=== PATIENT | female | born 1970 | race Caucasian/White ===

== ENCOUNTER 2022-09-22 22:52 | Inpatient (IN) ==
[2022-09-22] MEDS ORDERED: SODIUM CHLORIDE 0.9% 500 ML IV STA (23:11)
[2022-09-22] MEDS ORDERED: ALBUTEROL/IPRATROPIUM 3 ML NEB RESP TX STA (23:11)
[2022-09-22 23:30] LABS: Arterial Base Excess iSTAT -4 MMOL/L (-2.5-2.5); Arterial Bicarbonate iSTAT 20.4 MMOL/L (20-26); Arterial O2 Saturation iSTAT 100 % (95-100); Arterial PCO2 iSTAT 29 MM HG (35-48); Arterial PO2 iSTAT 195 MM HG (80-95); Arterial Total CO2 iSTAT 21 MMO/L (23-27); Arterial pH iSTAT 7.454 (7.35-7.45)
[2022-09-23 00:16] LABS: Alanine Aminotransferase 68 U/L (13-56); Albumin 2.8 G/DL (3.4-5.0); Alkaline Phosphatase 103 U/L (45-117); Aspartate Amino Transferase 111 U/L (0-37); Blood Urea Nitrogen 18 MG/DL (7-18); Calcium 8.5 MG/DL (8.5-10.1); Carbon Dioxide 22 MMOL/L (21-32); Chloride 107 MMOL/L (98-107); Glucose 125 MG/DL (74-106); Potassium 4.3 MMOL/L (3.5-5.1); Sodium 136 MMOL/L (136-145); Total Protein 6.3 G/DL (6.4-8.2)
[2022-09-23] MEDS ORDERED: SODIUM CHLORIDE 0.9% 1,000 ML IV STA (00:26)
[2022-09-23 00:35] LABS: INR 1.2; PT Patient Result 13.1 SECS (10.1-12.1)
[2022-09-23] MEDS ORDERED: VANCOMYCIN INJ 1,000 MG in SODIUM CHLORIDE 0.9% 250 ML IV STA (01:08)
[2022-09-23] MEDS ORDERED: methylPREDNISolone SOD SUC 125 MG/2 ML VIAL IV STA (01:08)
[2022-09-23] MEDS ORDERED: PIPERACILLIN/TAZOBACTAM 3,375 MG in SODIUM CHLORIDE 0.9% 100 ML IV STA (01:08)
[2022-09-23] MEDS ORDERED: ALBUTEROL 2.5 MG/3 ML NEB RESP TX STA (01:09)
[2022-09-23] MEDS ORDERED: hydrALAZINE 20 MG/1 ML VIAL IV PRN (01:36)
[2022-09-23] MEDS ORDERED: ACETAMINOPHEN 325 MG TABLET PO PRN (01:36)
[2022-09-23] MEDS ORDERED: NICOTINE 21 MG/24 HR PATCH TRANSDERM PRN (01:36)
[2022-09-23] MEDS ORDERED: ONDANSETRON 4 MG/2 ML VIAL IV PRN (01:36)
[2022-09-23] MEDS ORDERED: ALUMINUM/MAGNES/SIMETH MAX STR 30 ML UDCUP PO PRN (01:36)
[2022-09-23] MEDS ORDERED: PANTOPRAZOLE INJ 80 MG in SODIUM CHLORIDE 0.9% 100 ML IV ONE (01:46)
[2022-09-23 02:21] LABS: Basophils % 0.1 % (0.0-0.8); Eosinophils # 0.1 10*3/uL (0.0-0.87); Eosinophils % 0.7 % (0.00-10.9); Immature Granulocytes % 0.5 %; Immature Granulocytes Absolute 0.04 #; Lymphocytes % 13.3 % (21.3-54.2); Mean Corpuscular HGB Conc 24.8 GM/DL (32-36); Mean Corpuscular Volume 60.1 FL (87-102); Monocytes # 0.6 10*3/uL (0.11-0.8); Monocytes % 8.1 % (1.7-12.7); NRBC # 0.04 10*3/uL; Neutrophils % 77.3 % (38.7-73.9); Platelet Count 149 T/CUMM (130-400); Red Blood Count 1.68 MC/CUMM (3.8-5.5); Red Cell Distribution Width 21.5 % (9.3-17.3); White Blood Count 7.7 T/CUMM (4-12)
[2022-09-23] MEDS ORDERED: SODIUM CHLORIDE 0.9% 1,000 ML IV PRN ×2 (02:22→16:24)
[2022-09-23 02:24] LABS: Hematocrit 10.1 VOL% (35.7-47.0); Hemoglobin 2.5 GM/DL (12.0-16.0)
[2022-09-23] MEDS ORDERED: SODIUM CHLORIDE 0.9% 3,000 ML IV ONE (02:25)
[2022-09-23] MEDS ORDERED: ALBUTEROL 2.5 MG/3 ML NEB RESP TX PRN (03:46)
[2022-09-23 04:10] LABS: INR 1.2; PT Patient Result 13.4 SECS (10.1-12.1); Partial Thromboplastin Time 20.1 SECS (23.7-32.9)
[2022-09-23 04:32] LABS: Risk Ratio 2.14; Thyroid Stimulating Hormone 1.52 uIU/ml (0.358-3.74); VLDL Cholesterol 10.4 MG/DL
[2022-09-23 04:39] LABS: High Sensitive Troponin I* 116.8 ng/L (0-54)
[2022-09-23 04:40] LABS: Bacteria,Urine Occasional /HPF (Few); RBC,Urine 2 /HPF (0-4); Squamous Epithelial Cell,Urine Few /HPF (0-10)
[2022-09-23 04:44] LABS: Bilirubin,Urine Negative (Negative); Blood, Urine Moderate mg/dL (Negative); Glucose,Urine (UA) Negative (Negative); Ketones,Urine Negative (Negative); Nitrite,Urine Negative (Negative); Protein,Urine Negative (Negative); Urine Appearance Clear (Clear); Urine Color Yellow (Yellow); Urine Urobilinogen 0.2 eU/dL (<2.0)
[2022-09-23] MEDS ORDERED: GLUCAGON 1 MG VIAL IM PRN (05:12)
[2022-09-23] MEDS ORDERED: DEXTROSE 10% 250 ML BAG IV PRN (05:12)
[2022-09-23] MEDS: PANTOPRAZOLE INJ 200 MG in SODIUM CHLORIDE 0.9% 250 ML IV SCH (05:15)
[2022-09-23 05:19] LABS: Barbiturates Screen,Urine Negative (Negative); Benzodiazepines Screen,Urine Negative (Negative); Cannabinoid Screen,Urine Negative (Negative); Opiate Screen,Urine Negative (Negative); Phencyclidine Screen,Urine Negative (Negative)
[2022-09-23] MEDS ORDERED: INSULIN LISPRO 100 UNIT/ML SUBCUT SCH (06:00)
[2022-09-23] MEDS ORDERED: ALBUTEROL 2.5 MG/3 ML NEB RESP TX SCH (07:00)
[2022-09-23] MEDS ORDERED: methylPREDNISolone SOD SUC 40 MG/1 ML VIAL IV SCH (08:00)
[2022-09-23] MEDS: ALBUTEROL/IPRATROPIUM 3 ML NEB RESP TX SCH ×3 (08:02→18:45)
[2022-09-23] MEDS: methylPREDNISolone SOD SUC 40 MG/1 ML VIAL IV SCH ×2 (08:43→17:37)
[2022-09-23] MEDS ORDERED: PANTOPRAZOLE 40 MG TABLET PO SCH (09:00)
[2022-09-23] MEDS ORDERED: LACTATED RINGERS 1,000 ML IV SCH (10:30)
[2022-09-23] MEDS: DOCUSATE SODIUM 100 MG CAPSULE PO SCH ×2 (11:05→20:14)
[2022-09-23 11:58] LABS: Hematocrit 19.6 VOL% (35.7-47.0)
[2022-09-23 12:21] LABS: Hepatitis B Core IgM Quant 0.07 Index; Hepatitis B Surface Ag Quant < 0.10 Index; Hepatitis B Surface Ag Result Non-Reactive (NonReactive); Hepatitis C Virus Ab Quant > 11.00 Index; Hepatitis C Virus Ab Result Reactive (NonReactive)
[2022-09-23 15:39] LABS: Hematocrit 21.8 VOL% (35.7-47.0); Hemoglobin 6.5 GM/DL (12.0-16.0)
[2022-09-23] MEDS ORDERED: POLYETHYLENE GLYCOL POWDER 255 GM BOTTLE PO ONE (18:00)
[2022-09-23] MEDS: FUROSEMIDE 40 MG/4 ML VIAL IV PRN (18:40)
[2022-09-24] MEDS: ALBUTEROL/IPRATROPIUM 3 ML NEB RESP TX SCH ×4 (00:15→19:00)
[2022-09-24] MEDS: methylPREDNISolone SOD SUC 40 MG/1 ML VIAL IV SCH ×3 (00:18→17:06)
[2022-09-24] MEDS: FUROSEMIDE 40 MG/4 ML VIAL IV PRN (00:19)
[2022-09-24 04:44] LABS: Basophils % 0.1 % (0.0-0.8); Hematocrit 28.3 VOL% (35.7-47.0); Hemoglobin 9.1 GM/DL (12.0-16.0); Immature Granulocytes % 5.2 %; Immature Granulocytes Absolute 0.41 #; Lymphocytes # 0.5 10*3/uL (1.4-4.0); Mean Corpuscular HGB Conc 32.2 GM/DL (32-36); Mean Corpuscular Volume 73.9 FL (87-102); Monocytes # 0.3 10*3/uL (0.11-0.8); Monocytes % 3.2 % (1.7-12.7); NRBC # 0.12 10*3/uL; Neutrophils % 85.5 % (38.7-73.9); Platelet Count 108 T/CUMM (130-400); Red Blood Count 3.83 MC/CUMM (3.8-5.5); White Blood Count 7.9 T/CUMM (4-12)
[2022-09-24] MEDS ORDERED: POLYETHYLENE GLYCOL POWDER 255 GM BOTTLE PO ONE ×3 (05:00→09:00)
[2022-09-24 05:06] LABS: Lymphocytes 2 % (20-55); Nucleated Red Blood Cells 4 /100 WBC (0-5); Total Cells Counted 100
[2022-09-24 05:07] LABS: Bilirubin,Total 2.2 MG/DL (0.20-1.00); Calcium 8.3 MG/DL (8.5-10.1); Hypochromia 1+; Microcytosis 1+; Osmolality,Calculated 278.8 MOS/KG (273-304); Potassium 3.7 MMOL/L (3.5-5.1); Total Protein 6.7 G/DL (6.4-8.2)
[2022-09-24] MEDS: PANTOPRAZOLE INJ 200 MG in SODIUM CHLORIDE 0.9% 250 ML IV SCH (06:41)
[2022-09-24] MEDS: LACTATED RINGERS 1,000 ML IV SCH (09:10)
[2022-09-24] MEDS: DOCUSATE SODIUM 100 MG CAPSULE PO SCH ×2 (10:04→20:40)
[2022-09-24] MEDS: PANTOPRAZOLE 40 MG TABLET PO SCH (10:06)
[2022-09-24] MEDS: IRON (CARBONYL)/VIT C/B12/FA TABLET PO SCH (10:06)
[2022-09-24] MEDS: METOPROLOL TARTRATE 25 MG TABLET PO SCH ×2 (17:07→20:40)
[2022-09-25] MEDS: ALBUTEROL/IPRATROPIUM 3 ML NEB RESP TX SCH ×4 (00:45→21:57)
[2022-09-25] MEDS: methylPREDNISolone SOD SUC 40 MG/1 ML VIAL IV SCH ×4 (03:59→23:15)
[2022-09-25 05:38] LABS: Basophils % 0.2 % (0.0-0.8); Hematocrit 30.1 VOL% (35.7-47.0); Hemoglobin 9.6 GM/DL (12.0-16.0); Immature Granulocytes % 2.3 %; Immature Granulocytes Absolute 0.29 #; Lymphocytes # 0.9 10*3/uL (1.4-4.0); Lymphocytes % 7.2 % (21.3-54.2); Mean Corpuscular HGB Conc 31.9 GM/DL (32-36); Mean Corpuscular Volume 75.1 FL (87-102); Monocytes # 0.7 10*3/uL (0.11-0.8); Monocytes % 5.3 % (1.7-12.7); NRBC # 0.08 10*3/uL; Platelet Count 124 T/CUMM (130-400); Red Blood Count 4.01 MC/CUMM (3.8-5.5); White Blood Count 12.8 T/CUMM (4-12)
[2022-09-25 06:01] LABS: Albumin 3.1 G/DL (3.4-5.0); Bilirubin,Total 1.1 MG/DL (0.20-1.00); Calcium 8.8 MG/DL (8.5-10.1); Potassium 3.9 MMOL/L (3.5-5.1); Total Protein 6.6 G/DL (6.4-8.2)
[2022-09-25 06:09] LABS: Anisocytosis 1+; Hypochromia 1+; Microcytosis 1+; Polychromasia Slight
[2022-09-25 06:10] LABS: Ovalocytes Slight; Platelet Estimate Adequate; Target Cells Slight
[2022-09-25] MEDS: LACTATED RINGERS 1,000 ML IV SCH (08:00)
[2022-09-25] MEDS: DOCUSATE SODIUM 100 MG CAPSULE PO SCH ×2 (09:54→20:28)
[2022-09-25] MEDS: IRON (CARBONYL)/VIT C/B12/FA TABLET PO SCH (09:55)
[2022-09-25] MEDS: METOPROLOL TARTRATE 25 MG TABLET PO SCH ×2 (09:55→20:26)
[2022-09-25] MEDS: PANTOPRAZOLE 40 MG TABLET PO SCH (09:55)
[2022-09-25] MEDS ORDERED: LIDOCAINE 2% 5 ML VIAL ONE ×2 (12:16→12:21)
[2022-09-25] MEDS ORDERED: propofoL 200 MG/20 ML VIAL IV ONE (12:16)
[2022-09-25 20:30] LABS: HSV 2, PCR Negative (Negative)
[2022-09-26] MEDS: ALBUTEROL/IPRATROPIUM 3 ML NEB RESP TX SCH ×4 (01:27→13:56)
[2022-09-26 05:46] LABS: Basophils % 0.1 % (0.0-0.8); Hematocrit 29.6 VOL% (35.7-47.0); Hemoglobin 9.2 GM/DL (12.0-16.0); Immature Granulocytes % 1.6 %; Immature Granulocytes Absolute 0.15 #; Lymphocytes # 0.4 10*3/uL (1.4-4.0); Lymphocytes % 4.7 % (21.3-54.2); Mean Corpuscular HGB Conc 31.1 GM/DL (32-36); Mean Corpuscular Volume 76.7 FL (87-102); Monocytes # 0.8 10*3/uL (0.11-0.8); NRBC # 0.06 10*3/uL; Neutrophils % 84.6 % (38.7-73.9); Platelet Count 107 T/CUMM (130-400); Red Blood Count 3.86 MC/CUMM (3.8-5.5); White Blood Count 9.2 T/CUMM (4-12)
[2022-09-26 06:01] LABS: Albumin 2.9 G/DL (3.4-5.0); Calcium 7.9 MG/DL (8.5-10.1); Osmolality,Calculated 279.7 MOS/KG (273-304); Potassium 3.6 MMOL/L (3.5-5.1); Total Protein 6.1 G/DL (6.4-8.2)
[2022-09-26 06:01] LABS: Folate 13.43 NG/ML (5.38-24.0)
[2022-09-26 06:17] LABS: % Iron Saturation 4.7 % (18-50)
[2022-09-26] MEDS: methylPREDNISolone SOD SUC 40 MG/1 ML VIAL IV SCH ×2 (08:19→16:09)
[2022-09-26 08:22] LABS: Anisocytosis 2+; Hypochromia Slight; Lymphocytes 5 % (20-55); Nucleated Red Blood Cells 1 /100 WBC (0-5); Ovalocytes Few; Platelet Estimate Adequate; Total Cells Counted 100
[2022-09-26 08:23] LABS: Polychromasia Slight
[2022-09-26] MEDS: IRON (CARBONYL)/VIT C/B12/FA TABLET PO SCH (09:18)
[2022-09-26] MEDS: DOCUSATE SODIUM 100 MG CAPSULE PO SCH (09:19)
[2022-09-26] MEDS: METOPROLOL TARTRATE 25 MG TABLET PO SCH (09:19)
[2022-09-26] MEDS: PANTOPRAZOLE 40 MG TABLET PO SCH (09:19)
[2022-09-26] MEDS ORDERED: FERROUS SULFATE 325 MG TABLET PO SCH (12:30)
[2022-09-26] MEDS: LACTATED RINGERS 1,000 ML IV SCH (13:53)
[2022-09-26 16:53] VITALS: BP 162/98
== END 2022-09-26 18:21 | disposition home or self-care (01) | DRG 378 ==
LOC: EDUNIT# → EDBD → N.ED 22:52 → SUATTDRO 09-23 03:33 → N.EDINP 09-23 03:33 → N.ICU 09-23 05:20 → N.2E 09-25 18:00
PROVIDERS: ADMIT Family Medicine; ATTEND Internal Medicine